=== PATIENT | female | born 1945 | race Caucasian/White ===

== ENCOUNTER 2016-10-30 19:43 | Emergency (ER) | payer MEDICARE, OTHER ==
--- NOTE | ~2016-10-30 | ER ---
PATIENT'S NAME: ALETHEA NEVILLE [facility] AGE: 71 Y [address] ROOM: [place] [address] LOCATION: ED ADMIT DATE: 10/30/2016 ER/Outpatient Report DISCHARGE DATE: 10/30/2016 FAMILY PHYSICIAN: Evangelist Beebe MD ATTENDING PHYSICIAN: You Taylor Admission date and time documented on the medical record. I saw the patient at 2000 hours. CHIEF COMPLAINT: Generalized weakness, fatigue, shortness of breath. HISTORY OF PRESENT ILLNESS: This patient is a 71-year-old female who has had increasing shortness of breath today. She has kind of had generalized weakness and fatigue over the past 2 to 3 days, more so since Sunday night. No documented fever. Some chills and sweats. Does use home O2, 2 to 3 L usually, by nasal cannula per minute; increased to 4 L per minute today. Does have a history of chronic rib pain and COPD. Does have a history of remote tobacco abuse. Presently nonsmoker and nondrinker. Denies any headache, eyes, ears, nose, throat, neck, or spine pain. No cough. Is not lightheaded or dizzy. No syncope or near syncope. No fall or trauma. No recent cough, colds, or flus. No chest pain other than chronic rib pain. Is increasingly short of breath. No abdominal pain, nausea, vomiting, diarrhea, urinary frequency, urgency, or dysuria. No joint or muscle swelling, redness, or pain. No skin eruptions or rash. Does have hypothyroidism, but no other endocrine problems. Does have depression and anxiety, but no psychosis. No neuro changes. HOME MEDICATIONS: See attached medication list. ALLERGIES: IBUPROFEN. SOCIAL HISTORY: Nonsmoker and nondrinker. SIGNIFICANT PAST MEDICAL HISTORY: Hypothyroidism, COPD, vertebral compression fractures, osteoporosis, degenerative osteoarthritis, chronic back pain, chronic rib pain, remote tobacco abuse, irritable bowel syndrome, anxiety, depression, gastroesophageal reflux, lung abscess, restless legs syndrome. OPERATIONS: Vertebroplasty, hysterectomy, right lung lobectomy, thyroid surgery, PATIENT'S NAME: ALETHEA NEVILLE [facility] AGE: 71 Y [address] ROOM: [place] [address] LOCATION: ED ADMIT DATE: 10/30/2016 ER/Outpatient Report DISCHARGE DATE: 10/30/2016 FAMILY PHYSICIAN: Evangelist Beebe MD ATTENDING PHYSICIAN: You Taylor microdiskectomy, cholecystectomy. REVIEW OF SYSTEMS: All systems reviewed by me are negative with the exception of those discussed in the history of present illness. PHYSICAL EXAMINATION: VITAL SIGNS: Pulse 86, respirations 24, blood pressure 188/86, O2 saturation on 2 L oxygen per nasal cannula is 96%. HEENT: Head, normocephalic. Eyes, clear. Ears, clear TMs bilaterally. Nose, clear. Throat, clear. Mucous membranes moist. Teeth, jaw intact. NECK: No nuchal rigidity. No thyromegaly or cervical adenopathy. No tenderness. Full range of motion. SPINE: Nontender. No deformity. LUNGS: Clear. Good air flow. No rales, rhonchi, or wheezes. HEART: Regular. Pulses palpable. ABDOMEN: Soft, nondistended, nontender. Good bowel tones. No organomegaly or abnormal mass palpable. No CVA tenderness. EXTREMITIES: No peripheral edema, cyanosis, or deformity. Neurovascularly intact. SKIN: Clear. No skin eruptions or rash. LABORATORY DATA AND X-RAYS: Cath urine showed 0 to 2 whites, negative reds, negative epithelial cells, negative bacteria, 2+ mucus per high-powered field, negative nitrites. Influenza A and B were both negative. Procalcitonin was normal at less than 0.05. Lactate was 0.8. Arterial blood gases showed a pH of 7.47, pCO2 of 39, pO2 of 98, with an O2 saturation of 98% on 2 L of oxygen per nasal cannula. D- dimer was normal at 0.36. CRP was less than 0.29. Thyroid tests were normal except for an elevated TSH of 7.23. ProBNP was 96. CMS was normal except for a slightly low potassium of 3.6, a slightly elevated glucose of 103. CPK was 108. Point of care cardiac enzymes were normal. White count was 7900, 76 segs, 15 lymphs, 7 monos, 1 eo, 1 baso. Hemoglobin was 11.3 with hematocrit of 34.9, platelet count is 338,000. Protime is 10.5 with an INR of 1.0. IMPRESSION: 1. Generalized weakness with fatigue, accompanied with increasing shortness of breath over the past 2 to 3 days. Etiology uncertain. No evidence of infection on chest x-ray or laboratory studies. No evidence of dehydration or malnutrition. 2. Chronic obstructive pulmonary disease, O2 dependent. 3. Hypothyroidism. 4. Remote tobacco abuse. 5. Anxiety and depression. PATIENT'S NAME: ALETHEA NEVILLE [facility] AGE: 71 Y [address] ROOM: [place] [address] LOCATION: ED ADMIT DATE: 10/30/2016 ER/Outpatient Report DISCHARGE DATE: 10/30/2016 FAMILY PHYSICIAN: Evangelist Beebe MD ATTENDING PHYSICIAN: You Taylor PLAN: The patient was discharged home. Observation. Activity as tolerated. Continue present home medications and care. Fluids, good hydration. Balanced diet. Rest. Watch for any spike of fever or temperature greater than 100. Follow up with personal physician as needed or in 3 to 4 days. Discussion ensued with the patient and her daughter regarding my findings and recommendations, they understand. YOU TAYLOR MD SDS/modl /[id number] d: 10/31/16518 t: 10/31/16 1824, OUTPATIENT REPORT
[~2016-10-30 19:43] MED LIST: CYMBALTA PO; KLONOPIN0.5 MG PO; LINZESS145 MCG PO; LYRICA150 MG PO; LYRICA75 MG PO; NORCO 5-325 MG1 TAB PO; OXYGEN; PRINIVIL5 MG PO; SPIRIVA18 MCG IH; SYNTHROID137 MCG PO; ULTRAM50 MG PO
[2016-10-30 20:28] LABS: BASOPHIL % 0.5 %; EOSINOPHIL # 0.1 K/uL (0.0-0.5); HEMATOCRIT 34.9 % (33.0-46.0); HEMOGLOBIN 11.3 g/dL (10.0-15.0); IMMATURE GRANULOCYTE % 0.3 %; LYMPHOCYTE # 1.2 K/uL (0.8-4.0); LYMPHOCYTE % 14.8 %; MCH 30.1 pg (27.0-34.0); MCHC 32.4 gm/dL (32.0-36.5); MCV 93.1 fl (83.0-98.0); MONOCYTE # 0.6 K/uL (0.0-1.0); MONOCYTE % 7.4 %; MPV 9.3 fl (9.4-12.4); NRBC % 0 /100WBC (0-0.00); PLATELET COUNT 338 K/uL (150-450); RBC 3.75 M/uL (3.50-5.50); RDW-CV 12.5 % (11.9-14.6); WBC 7.9 K/uL (4.0-11.0)
[2016-10-30 20:34] LABS: PROTIME 10.5 SECONDS (9.6-11.1)
[2016-10-30 20:44] LABS: BICARBONATE 28.4 mmol/L (18.0-23.0); LACTATE 0.8 mEq/L (0.50-1.60); PCO2 39 mmHg (35-45); PO2 98 mmHg (80-90)
[2016-10-30 20:46] LABS: ALBUMIN 3.5 gm/dL (3.5-5.0); ALK PHOS 85 IU/L (33-138); ALT 21 IU/L (12-78); ANION GAP 13.6 (10.0-19.0); AST 20 IU/L (10-40); BLOOD UREA NITROGEN 7 mg/dL (6-24); CALCIUM 8.7 mg/dL (8.5-10.5); CHLORIDE 98 mMol/L (96-110); CO2 27 mMol/L (22-32); CPK 108 IU/L (21-215); CREATININE 0.8 mg/dL (0.5-1.1); ESTIMATED GFR (MDRD EQUATION) > 60; POTASSIUM 3.6 mMol/L (3.7-5.1); SODIUM 135 mMol/L (135-145); TOTAL BILIRUBIN 0.3 mg/dL (0.0-1.5); TOTAL PROTEIN 6.8 g/dL (6.0-8.4)
[2016-10-30 22:28] LABS: BILIRUBIN URINE NEGATIVE (NEGATIVE); BLOOD URINE NEGATIVE /UL (NEGATIVE); GLUCOSE URINE NEGATIVE (NEGATIVE); KETONE URINE 150 mg/dL (NEGATIVE); LEUKOCYTES URINE 25 /UL (NEGATIVE); NITRITE URINE NEGATIVE (NEGATIVE); PROTEIN URINE 30 mg/dL (NEGATIVE); UROBILINOGEN URINE 1 mg/dL (NORMAL)
[2016-10-30 22:35] LABS: COLOR URINE YELLOW (YELLOW); TURBIDITY URINE CLEAR (CLEAR)
[2016-10-30 22:37] LABS: BACTERIA URINE NEGATIVE (NEGATIVE); EPITHELIAL URINE NEGATIVE #/HPF (NEGATIVE); MUCUS URINE 2+ (NEGATIVE); RBC URINE NEGATIVE #/HPF (NEGATIVE); WBC URINE 0-2 #/HPF (NEGATIVE)
== END 2016-10-30 22:54 | disposition disaster alternative care site (69) ==
LOC: GMED 19:43
PROVIDERS: Emergency Medicine
DX: R53.1 Weakness (principal); R06.02 Shortness of breath; R53.83 Other fatigue; J44.9 Chronic obstructive pulmonary disease, unspecified; E03.9 Hypothyroidism, unspecified; F41.9 Anxiety disorder, unspecified; M81.0 Age-related osteoporosis without current pathological fracture; M19.90 Unspecified osteoarthritis, unspecified site; K21.9 Gastro-esophageal reflux disease without esophagitis; G25.81 Restless legs syndrome; Z90.2 Acquired absence of lung [part of]; Z90.49 Acquired absence of other specified parts of digestive tract; Z88.6 Allergy status to analgesic agent
CPT/HCPCS: J7030